=== PATIENT | male | born 1980 ===

== ENCOUNTER 2020-02-07 08:26 | Emergency (ER) | payer OTHER ==
[~2020-02-07] VITALS: Ht 172.7 cm; Wt 66.7 kg
[2020-02-07] MEDS ORDERED: JULUCA 50-25 M1 EACH PO (08:32)
== END 2020-02-07 11:54 | disposition home or self-care (01) ==
LOC: ER 08:26
DX: R59.0 Localized enlarged lymph nodes (principal)